=== PATIENT | male | born 1955 | race Caucasian/White ===

== ENCOUNTER 2022-03-17 10:32 | Day surgery (SDC) | payer BC, SELFPAY ==
[2022-03-17 11:00] VITALS: BP 158/90; PULSE 57; RESP 16; TEMP 36; O2SAT 100
--- NOTE | 2022-03-17 11:10 | W.ANESPRE ---
General Info Date of Service Date Performed: 03/17/22 Height: 5 ft 7 in Weight: 99.6 kg Body Mass Index (BMI): 34.4 Surgical Procedure: Operation Date: 03/17/22 12:10 Proposed Procedure Side Surgeon p Cataract Extraction with IOL Bilateral Bilateral Shai Lee MD Meds Allergies and Home Medications Allergies Allergy/AdvReac Type Severity Reaction Status Date / Time No Known Allergies Allergy Unverified 03/17/22 10:58 Home Medication Medication Instructions Recorded aspirin 81 mg tablet,delayed 81 mg PO DAILY 03/14/22 release atorvastatin 10 mg tablet 10 mg PO DAILY 03/14/22 cholecalciferol (vitamin D3) 125 250 mcg PO DAILY 03/14/22 mcg (5,000 unit) tablet (Vitamin D3) magnesium oxide 400 mg PO HS 03/14/22 qnalilhfzuxy-isjxahlo-nuthsw tablet 1 tab PO DAILY 03/14/22 Current Visit Medications: Current Medications Generic Name Dose Route Start Last Admin Trade Name Freq PRN Reason Stop Dose Admin Acetaminophen 1,000 mg 03/17/22 06:00 Acetaminophen 500 Mg Tab PO Q4H PRN PRN Miscellaneous Medication 0 ml 03/17/22 06:00 Prednisolone 1%, Moxifloxacin 0.5%, Nepafenac 0.1% 5ml Btl OU DIRECTED ANTHONY Miscellaneous Medication 0 ml 03/17/22 06:00 Tropicam./Phenyleph. (1/2.5%) 5 Ml Btl OU DIRECTED ANTHONY Tetracaine HCl 0 ml 03/17/22 06:00 Tetracaine 0.5% 4 Ml Btl [facility] Medical History Medical History Actinic keratitis Asthma Per pt. sates he has never been dx with asthma. Backache Benign essential hypertension Carpal tunnel syndrome Cataract HTN (hypertension) Hyperlipemia Knee pain Metabolic syndrome X Pain in limb Pain of right hip joint Sacral radiculopathy Surgical History Surgical History History of ankle surgery right History of colonoscopy Tobacco Smoking/Tobacco Use Status: Never Alcohol Alcohol Intake: current Alcohol intake frequency: 0-2 drinks per day Substance Use Substance use: Never Substance use type: does not use Vital Signs and Lab Results Vital Signs Most Recent Vital Signs in EMR: Most Recent Vital Signs Temp Pulse Resp BP Pulse Ox 36 C L 57 L 16 158/90 H 100 03/17/22 11:00 03/17/22 11:00 03/17/22 11:00 03/17/22 11:00 03/17/22 11:00 Lab Results Blood Type / Crossmatch: No Data to Display Complete Blood Count: No Data to Display Complete Metabolic Panel: No Data to Display Liver Function Panel: No Data to Display Coagulation Panel: No Data to Display Cardiac Panel: No Data to Display Arterial Blood Gas: No Data to Display Venous Blood Gas: No Data to Display Pancreas Panel: No Data to Display Thyroid Panel: No Data to Display Infectious Disease: No Data to Display Blood Cultures: No Data to Display Toxicology Panel: No Data to Display Anesthesia Assessment and Plan Anesthesia History Personal History: No History of Anesthesia Complications Family History: No Family History of Anesthesia Complications Exercise Tolerance Exercise Tolerance: Metabolic Equivalents>4 Pertinent Negatives Pertinent Negatives: No Symptoms of GERD, No Major Cardiovascular Symptoms or Complaints, No Major Pulmonary Symptoms or Complaints and No History of CVA/TIA Cardiac & Pulmonary Exam Cardiac Exam: Normal S1/S2 Heart Sounds Pulmonary Exam: Clear Bilateral Breath Sounds Implantable Cardiac Device Does patient have a Pacemaker or an ICD?: No Airway Exam Known Difficult Airway: No Mallampati Class: 2 Mouth Opening: Normal (> 3cm) Thyromental Distance: Greater than 3 cm Neck Range of Motion: Full ROM Neck Circumference: Normal Teeth Condition: Normal Dentition ASA Classification ASA Score: ASA 2 Emergency Case?: No NPO Status NPO Status: NPO Clears >2 hours, Solids >8 hours Anesthesia Plan Resuscitation Status: Full Code Anesthesia Technique: MAC Anesthesia Airway Planned: Natural Airway Monitors Used: Standard Monitors
[2022-03-17 11:11] VITALS: BMI 34.4
[2022-03-17] MEDS: Tropicam./Phenyleph. (1/2.5%) 5 ML BTL OU ×3 (11:21→11:38)
[2022-03-17] MEDS: Tetracaine 0.5% 4 ML BTL OU (12:42)
[2022-03-17] MEDS: Povidone-Iodine Ophth 30 ML BTL ×2 (12:42→13:00)
[2022-03-17] MEDS: Balanced Salt Soln.-PLUS 500 ML BAG ×2 (12:44→13:00)
[2022-03-17] MEDS: Duovisc Viscoelastic System EACH 1 EACH ×2 (12:45→13:00)
[2022-03-17] MEDS: Lidocaine 2% Jelly 6 ML SYR ×2 (12:54→13:00)
[2022-03-17 13:30] VITALS: BP 149/82; PULSE 56; RESP 16; TEMP 36.5; O2SAT 97
--- NOTE | 2022-03-17 13:32 | W.PM.DSUDISC ---
Discharge Plan Disposition Patient Disposition: HOME Condition: Good Discharge Details Attending Provider: Shai Lee Primary Care Provider: Kallie Dale Home Meds and New Rx's Prescriptions: No Action atorvastatin 10 mg Tablet 10 mg PO DAILY aspirin [Aspir-Low] 81 mg Tablet,Delayed Release (Dr/Ec) 81 mg PO DAILY Centrum Silver Tablet 1 tab PO DAILY cholecalciferol (vitamin D3) [Vitamin D3] 125 mcg (5,000 unit) Tablet 250 mcg PO DAILY Label Comments: Takes in winter magnesium oxide 400 mg magnesium Tablet 400 mg PO HS Discharge Instructions Stand Alone Forms: Post-op Topical Cataract, Cain Robertson (DSU) Discharge Orders Discharge Orders: Discharge Order (Routine); Ordered 03/17/22 Ordered By: Shai Lee DS: Diagnosis Discharge Diagnosis (1) Nuclear sclerotic cataract of right eye: Status: Resolved (2) Nuclear sclerotic cataract of left eye: Status: Resolved
--- NOTE | 2022-03-17 13:34 | ROE_ITS ---
Date of service: 03/17/22 Time of Service: 12:34 Operative Note Operative Note DATE OF PROCEDURE: 03/17/22 PRE-OP DIAGNOSIS: Nuclear cataract, right eye Nuclear cataract, left eye POST-OP DIAGNOSIS: same PROCEDURE: Immediately sequential bilateral cataract extraction using phacoemulsification with intraocular lens implants, both eyes SURGEON: Shai Lee Refer to Anesthesia Record PATHOLOGY: none sent COMPLICATIONS: None Patient was transported to: same day Patient's condition: stable Implants: Ambrosio and [employer] / [employer] Tecnis ZCB00 Indications: Progressive decreased vision due to cataract, both eyes Procedure Description: CATARACT SURGERY OPERATIVE REPORT PREOPERATIVE DIAGNOSIS: Nuclear cataract, bilateral POSTOPERATIVE DIAGNOSIS: Same OPERATION: Bilateral sequential cataract extraction using phacoemulsification with posterior chamber intraocular lens implant, both eyes IOL OS: IOL Regional Retail Sales Manager/Model: [employer] / DAMON Tecnis ZCB00 IOL Power: + 15.5diopters IOL Serial Number: [id number] Optic Diameter: 6.0mm Haptic/Overall Diameter: 13.0mm PHACO INFO OS: Saúl [employer] Vision System with OZil and Active Fluidics Cumulative Dispersed Energy (CDE): 14.52 seconds IOL OD: IOL Regional Retail Sales Manager/Model: [employer] Vision / DAMON Tecnis ZCB00 IOL Power: + 16.0 diopters IOL Serial Number: [id number] Optic Diameter: 6.0mm Haptic/Overall Diameter: 13.0mm PHACO INFO OD: Saúl [employer] Vision System with OZil and Active Fluidics Cumulative Dispersed Energy (CDE): 14.25 seconds SURGEON: Shai Lee MD, DELMY ANESTHESIA: Monitored Anesthesia Care (MAC), with local sub-tenon's anesthetic infiltration COMPLICATIONS: None SPECIMENS: None INDICATIONS FOR PROCEDURE: The patient is a 66-year-old male with history of diminished visual acuity in both eyes secondary to the development of bilateral nuclear cataract. He is significant symptomatic that he desires cataract surgery attempt to improve and maximize his vision. Due to work restrictions, he desires bilateral same-day surgery. Understanding that inherent risks and immediately sequential bilateral cataract surgery, he wished to proceed. PROCEDURE: The correct surgical eye was identified and marked as both eyes and the pupils were dilated in the preoperative area using mydriatics and cycloplegics. The dilated pupil size was 6.0mm. Oral sedation was administered in the form of an Imprimis MKO Melt (midazolam 3mg/ketamine 25mg/ondansetron 2mg). The patient was brought to the operating room where cardiopulmonary monitoring was instituted and surgical time-out was performed, confirming the correct operative eye and IOL power. Attention was first directed to the right eye. Topical anesthesia was administered and ophthalmic povidone-iodine 5% was instilled into the conjunctival fornices. Lidocaine gel was applied to the cornea and the sparkle-ocular area was prepped with Betadine 10% solution and draped in the usual sterile fashion for intraocular surgery, including an apertu re drape. A Tegaderm transparent film dressing was cut in half and used to cover the lashes and lid margins. Care was taken to sequester the lashes and lid margins under the Tegaderm dressing. A lid speculum was placed between the lids of the operative eye and the Sa[employer]l Lux[employer] operating microscope was maneuvered into position. Cesia scissors were then used to make a conjunctival buttonhole approximately 6mm posterior to the limbus in the inferonasal quadrant. Blunt dissection was carried out to expose bare sclera, and a blunt-tipped sub-tenon?s anesthesia cannula was introduced and passed posteriorly along the globe where non- preserved plain lidocaine was injected into posterior sub-Tenon?s space. A sideport knife was used to make a paracentesis port at the 7:00 postion. Intraocular phenylephrine/lidocaine was injected into the anterior chamber. The anterior chamber was filled with Viscoat. A 2.4mm keratome knife was used to create a half-thickness groove at the limbus and then to construct a three-plane near-clear corneal tunnel extending 2.0mm into clear cornea at the 10:00 position. A flap was raised on the anterior capsule and capsulorhexis forceps were used to complete a continuous curvilinear capsulorhexis of 5.0 mm. Balanced salt solution was then used to perform cortical cleaving hydrodissection and nuclear hydrodelineation until the lens could be freely rotated within the capsular bag. The lens nucleus was then disassembled and removed within the capsular bag and iris plane using phacoemulsification. Residual cortical material was removed using the 45-degree angled silicone I/A tip with 0.3mm port. The posterior capsule was carefully polished to remove as much residual lens epithelial cells as safely possible. The capsular bag was then inflated and the anterior chamber deepened with viscoelastic. The lens implant described above was inserted into the capsular bag using the DAMON [employer] Injector. A Kuglen hook was used to dial the IOL into position. Residual viscoelastic was then removed first from posterior to the IOL, then from the anterior chamber using the I/A handpiece. The lens implant was noted to center nicely within the capsular bag. The incisions were stromally hydrated, and the anterior chamber was reformed using BSS. Then 0.5cc of moxifloxacin 1.0mg/ml were injected into the capsular bag and anterior chamber. The incisi ons were checked with a Weck spear and found to be secure. Several drops of ophthalmic povidone-iodine 5% were then applied to the eye followed by two drops of Imprimis combination prednisolone/moxifloxacin/nepafenac solution. The drapes were removed and a clear plastic protective eye shield was placed over the eye. Attention was then directed toward the left eye, where an entirely new set of instruments, tubing, medications, fluids, gowns, gloves, and drapes were used. Topical anesthesia was administered and ophthalmic povidone-iodine 5% was instilled into the conjunctival fornices. Lidocaine gel was applied to the cornea and the sparkle-ocular area was prepped with Betadine 10% solution and draped in the usual sterile fashion for intraocular surgery, including an aperture drape. A Tegaderm transparent film dressing was cut in half and used to cover the lashes and lid margins. Care was taken to sequester the lashes and lid margins under the Tegaderm dressing. A lid speculum was placed between the lids of the operative eye and the Sa[employer] Lux[employer] operating microscope was maneuvered into position. Cesia scissors were then used to make a conjunctival buttonhole approximately 6mm posterior to the limbus in the inferonasal quadrant. Blunt dissection was carried out to expose bare sclera, and a blunt-tipped sub-tenon?s anesthesia cannula was introduced and passed posteriorly along the globe where non- preserved plain lidocaine was injected into posterior sub-Tenon?s space. A sideport knife was used to make a paracentesis port at the 12:00 postion. Intraocular phenylephrine/lidocaine was injected into the anterior chamber. The anterior chamber was filled with Viscoat. A 2.4mm keratome knife was used to create a half-thickness groove at the limbus and then to construct a three-plane near-clear corneal tunnel extending 2.0mm into clear cornea at the 3:00 position. A flap was raised on the anterior capsule and capsulorhexis forceps were used to complete a continuous curvilinear capsulorhexis of 5.0 mm. Balanced salt solution was then used to perform cortical cleaving hydrodissection and nuclear hydrodelineation until the lens could be freely rotated within the capsular bag. The lens nucleus was then disassembled and removed within the capsular bag and iris plane using phacoemulsification. Residual cortical material was removed using the 45-degree angled silicone I/A tip with 0.3mm port. The posterior capsule was carefully polished to remove as much residual lens epithelial cells as safely possible. The capsular bag was then inflated and the anterior chamber deepened with viscoelastic. The lens implant described above was inserted into the capsular bag using the DAMON [employer] Injector. A Kuglen hook was used to dial the IOL into position. Residual viscoelastic was then removed first from posterior to the IOL, then from the anterior chamber using the I/A handpiece. The lens implant was noted to center nicely within the capsular bag. The incisions were stromally hydrated, and the anterior chamber was reformed using BSS. Then 0.5cc of moxifloxacin 1.0mg/ml were injected into the capsular bag and anterior chamber. The incisions were checked with a Weck spear and found to be secure. Several drops of ophthalmic povidone-iodine 5% were then applied to the eye followed by two drops of Imprimis combination prednisolone/moxifloxacin/nepafenac. The drapes were removed and a clear plastic protective eye shield was placed over the eye. The patient was then returned to Same Day Surgery in stable condition.
[2022-03-17 14:00] VITALS: BP 138/78; PULSE 59; RESP 18; TEMP 36; O2SAT 97
--- NOTE | 2022-03-17 14:09 | W.ANESPOSTOP ---
Postoperative Evaluation Date, Time and Location Date Performed: 03/17/22 Time Performed: 13:30 Patient Location: Day Surgery Unit Vital Signs Most Recent Imported Vital Signs: Most Recent Vital Signs Temp Pulse Resp BP Pulse Ox 36.5 C 56 L 16 149/82 H 97 03/17/22 13:30 03/17/22 13:30 03/17/22 13:30 03/17/22 13:30 03/17/22 13:30 Pain Score Most Recent Pain Score: Most Recent Pain Score Pain Level 0 03/17/22 13:30 Assessment Mental Status: Awake (Alert & Oriented to Patient Baseline) Airway and Respiratory Function: Patent airway with normal (patient baseline) respiratory exam Cardiovascular Function: Hemodynamically Stable Hydration Status: Adequately Hydrated Nausea & Vomiting: No Nausea or Vomiting Pain: Pt. Denies Any Pain Peripheral Nerve Block: Patient did not receive a nerve block
== END 2022-03-17 14:15 | disposition home or self-care (01) ==
PROVIDERS: PCP Internal Medicine; Visit Provider Ophthalmology
PROC: (CPT 66984; principal; 2022-03-17 12:00)
DX: H25.13 Age-related nuclear cataract, bilateral (principal); I10 Essential (primary) hypertension; E78.5 Hyperlipidemia, unspecified; E88.81 Metabolic syndrome and other insulin resistance
CPT/HCPCS: 66984; V2632